=== PATIENT | male | born 1975 | race Caucasian/White ===

== ENCOUNTER 2024-08-22 11:18 | Emergency (ER) | payer SELFPAY ==
[~2024-08-22] VITALS: Ht 154.9 cm; Wt 63.0 kg
[2024-08-22 11:49] VITALS: BP 120/82; PULSE 79; RESP 16; TEMP 98; O2SAT 100
[2024-08-22] MEDS: BACITRACIN ZINC OINT UDPKT TOP ONE (12:42)
[2024-08-22] MEDS: LIDOCAINE HCL/PF 1% 10 MG/ML 5ML VIAL INFIL ONE (12:42)
== END 2024-08-22 13:22 | disposition home or self-care (01) ==
LOC: ER 11:30
DX: S51.811A Laceration without foreign body of right forearm, initial encounter (principal); Z98.890 Other specified postprocedural states; W45.8XXA Other foreign body or object entering through skin, initial encounter; Y93.89 Activity, other specified; Y92.89 Other specified places as the place of occurrence of the external cause; Y99.8 Other external cause status
CPT/HCPCS: 12004; 99282; J3490; Z7610